=== PATIENT | female | born 1980 | race Caucasian/White ===

== ENCOUNTER 2019-10-06 13:36 | Inpatient (IN) | payer MEDICAID, OTHER ==
[~2019-10-06] VITALS: Ht 154.9 cm; Wt 45.6 kg
[~2019-10-06 13:36] MED LIST: DIVA-76 PO
[2019-10-06 15:51] LABS: BASOPHILS % (AUTO) 0.7 % (0.0-2.0); EOSINOPHILS % (AUTO) 1.3 % (1.0-6.0); HEMATOCRIT 42.1 % (36-46); HEMOGLOBIN 14.1 g/dL (12.0-16.0); LYMPHOCYTES # (AUTO) 2.3 K/uL (1.0-4.8); MEAN CORPUSCULAR HEMOGLOBIN 28.9 pg (26.0-34.0); MEAN CORPUSCULAR HGB CONC 33.4 G/dL (31.0-37.0); MEAN CORPUSCULAR VOLUME 87 fL (80-100); MONOCYTES # (AUTO) 1.1 K/uL (0.1-1.0); MONOCYTES % (AUTO) 11.8 % (2.0-9.0); NEUTROPHILS # (AUTO) 5.4 K/uL (1.8-7.7); NEUTROPHILS % (AUTO) 60.2 % (40.0-70.0); PLATELET COUNT (AUTO) 277 K/uL (150-450); RED BLOOD CELL COUNT(AUTO) 4.87 MIL/uL (4.00-5.20); RED CELL DISTRIBUTION WIDTH 13.4 % (11.5-14.5)
[2019-10-06 16:34] LABS: ALKALINE PHOSPHATASE 41 U/L (46-116); ANION GAP 10 mmol/L (8-16); ASPARTATE AMINOTRANSFERASE 16 U/L (15-37); BILIRUBIN,TOTAL 0.5 mg/dL (0.1-1.0); CARBON DIOXIDE 26 mmol/L (22-29); CHLORIDE 105 mmol/L (98-107); CREATININE 0.82 mg/dL (0.60-1.30); GLOMERULAR FILTR. RATE CALC > 60 mL/min (>60); POTASSIUM 3.9 mmol/L (3.5-5.1); SODIUM SERUM 141 mmol/L (136-145); UREA NITROGEN, BLOOD 14 mg/dL (7-18)
[2019-10-06 16:35] LABS: ALANINE AMINOTRANSFERASE 19 U/L (12-78); ALBUMIN 4.3 g/dL (3.4-5.0); HCG,QUANTITATIVE < 1 mIU/mL (0-6); TOTAL PROTEIN, SERUM 7.5 g/dL (6.4-8.2); VALPROIC ACID 11 mcg/mL (50-100)
[2019-10-06 16:39] LABS: GLUCOSE,RANDOM 76 mg/dL (70-110)
[2019-10-06] MEDS ORDERED: TRAZ-257 PO (17:36)
[2019-10-06] MEDS ORDERED: GABA-1181 PO (17:36)
[2019-10-06] MEDS ORDERED: QUET25TA PO (17:36)
[2019-10-06] MEDS ORDERED: BUSP15 PO (17:36)
[2019-10-06] MEDS ORDERED: DIVA-78 PO (17:36)
[2019-10-06] MEDS ORDERED: HYD25 PO (17:36)
[2019-10-06] MEDS ORDERED: LORazepam 1 MG TABLET PO ONE (18:30)
[2019-10-06] MEDS ORDERED: HALOPERIDOL 5 MG TABLET PO PRN (20:00)
[2019-10-06] MEDS ORDERED: LORazepam 2 MG TABLET PO PRN (20:00)
[2019-10-06] MEDS ORDERED: ZOLPIDEM TARTRATE 10 MG TABLET PO PRN (20:00)
[2019-10-06 20:37] LABS: AMPHET/METH SCREEN,URINE POSITIVE (NEGATIVE); BARBITURATE SCREEN, URINE NEGATIVE (NEGATIVE); BENZODIAZEPINES SCREEN,URINE NEGATIVE (NEGATIVE); CANNABINOID SCREEN,URINE POSITIVE (NEGATIVE); COCAINE SCREEN,URINE NEGATIVE (NEGATIVE); METHADONE SCREEN, URINE NEGATIVE (NEGATIVE); OPIATE SCREEN,URINE NEGATIVE (NEGATIVE)
[2019-10-06 20:49] LABS: PHENCYCLIDINE SCREEN,URINE NEGATIVE (NEGATIVE)
[2019-10-06 21:42] VITALS: BP 104/70
[2019-10-07 05:12] VITALS: BP 90/55
[2019-10-07] MEDS ORDERED: MAGNESIUM HYDROXIDE SUSPENSION 30 ML UDCUP PO PRN (07:45)
[2019-10-07] MEDS ORDERED: ACETAMINOPHEN 325 MG TABLET PO PRN (07:45)
[2019-10-07] MEDS ORDERED: NICOTINE 14 MG/24 HOUR PATCH TD PRN (07:45)
[2019-10-07] MEDS ORDERED: ALBUTEROL SULFATE HFA 90 MCG/PUFF 8 GM INHALER IH PRN (07:45)
[2019-10-07] MEDS ORDERED: DOCUSATE SODIUM 100 MG CAPSULE PO PRN (07:45)
[2019-10-07] MEDS ORDERED: GuaiFENesin/D-METHORPHAN [SUGAR-FREE] 200-20MG/10 ML SYRUP UDCUP PO PRN (07:45)
[2019-10-07] MEDS ORDERED: LOPERAMIDE HCL 2 MG CAPSULE PO PRN (07:45)
[2019-10-07] MEDS ORDERED: CloNIDine HCL 0.1 MG TABLET PO PRN (07:45)
[2019-10-07] MEDS ORDERED: ONDANSETRON HCL 4 MG TABLET PO PRN (07:45)
[2019-10-07] MEDS ORDERED: PETROLATUM,WHITE 28 GM JELLY TP PRN (07:45)
[2019-10-07] MEDS ORDERED: MAG HYDROX/AL HYDROX/SIMETH ES 30 ML SUSPENSION UDCUP PO PRN (07:45)
[2019-10-07] MEDS ORDERED: IBUPROFEN 400 MG TABLET PO PRN (07:45)
[2019-10-07 11:12] VITALS: BP 111/65
[2019-10-07 16:00] VITALS: BP 90/50
[2019-10-07] MEDS: BusPIRone HCL 15 MG TABLET PO SCH (16:49)
[2019-10-07] MEDS: DIVALPROEX SODIUM 500 MG DR TABLET PO SCH (16:49)
[2019-10-07] MEDS: TraZODone HCL 100 MG TABLET PO SCH (20:52)
[2019-10-08 09:30] VITALS: BP 91/53
[2019-10-08] MEDS: DIVALPROEX SODIUM 500 MG DR TABLET PO SCH ×2 (09:32→16:32)
[2019-10-08] MEDS: MULTIVITAMINS WITH MINERALS, THERAPEUTIC TABLET PO SCH (09:32)
[2019-10-08] MEDS: BusPIRone HCL 15 MG TABLET PO SCH ×2 (09:33→16:32)
[2019-10-08 16:00] VITALS: BP 83/68
[2019-10-08] MEDS ORDERED: TRIAMCINOLONE 0.025% 15 GM OINTMENT TP PRN (17:15)
[2019-10-08] MEDS: TraZODone HCL 100 MG TABLET PO SCH (21:00)
[2019-10-09] MEDS: DIVALPROEX SODIUM 500 MG DR TABLET PO SCH (08:07)
[2019-10-09] MEDS: BusPIRone HCL 15 MG TABLET PO SCH (08:07)
[2019-10-09] MEDS: MULTIVITAMINS WITH MINERALS, THERAPEUTIC TABLET PO SCH (08:08)
[2019-10-09 10:14] VITALS: BP 95/61
== END 2019-10-09 14:40 | disposition home or self-care (01) | DRG 885 ==
LOC: EMS 13:37 → 3EI 20:30
PROVIDERS: ADMIT Psychiatry & Neurology Psychiatry; ATTEND Psychiatry & Neurology Psychiatry
DX: F31.30 Bipolar disorder, current episode depressed, mild or moderate severity, unspecified (principal); R45.851 Suicidal ideations; F17.210 Nicotine dependence, cigarettes, uncomplicated; J45.909 Unspecified asthma, uncomplicated; Z86.718 Personal history of other venous thrombosis and embolism; F19.10 Other psychoactive substance abuse, uncomplicated; F10.10 Alcohol abuse, uncomplicated; Y90.9 Presence of alcohol in blood, level not specified; K59.00 Constipation, unspecified; R21 Rash and other nonspecific skin eruption
CPT/HCPCS: G0480